=== PATIENT | female | born 1985 | race Caucasian/White ===

== ENCOUNTER 2020-09-24 15:38 | Observation (INO) | payer MEDICAID ==
[~2020-09-24] VITALS: Ht 162.6 cm; Wt 104.3 kg
[2020-09-24] MEDS ORDERED: PREN1TAB78 MT (16:36)
[2020-09-24] MEDS ORDERED: LEVO150T8 MT (16:36)
[2020-09-24] MEDS ORDERED: LACTATED RINGERS 1,000 ML IV SCH (17:00)
== END 2020-09-24 19:50 | disposition home or self-care (01) ==
LOC: 8 EST LDRP 15:38
PROVIDERS: ADMIT Specialist; ATTEND Specialist
DX: O42.92 Full-term premature rupture of membranes, unspecified as to length of time between rupture and onset of labor (principal); Z3A.38 38 weeks gestation of pregnancy
CPT/HCPCS: 76815; 76818; 96360; 96361; G0378; 99281; J7120

== ENCOUNTER → 2020-09-30 | Outpatient (CLI) | payer MEDICAID ==
[~2020-09-30] MED LIST: LEVO150T8 MT; PREN1TAB78 MT
== END | disposition home or self-care (01) ==
LOC: LAB 09:41
PROVIDERS: ATTEND Specialist
DX: Z20.828 Contact with and (suspected) exposure to other viral communicable diseases (principal)
CPT/HCPCS: C9803; U0003

== ENCOUNTER 2020-10-01 14:26 | Observation (INO) | payer MEDICAID ==
[~2020-10-01] VITALS: Ht 162.6 cm; Wt 105.7 kg
[2020-10-01 15:21] LABS: CLARITY URINE CLEAR (CLEAR); COLOR URINE YELLOW (YELLOW); KETONES URINE NEGATIVE (NEGATIVE); LEUKOCYTE ESTERASE URINE TRACE (NEGATIVE); NITRITE URINE NEGATIVE (NEGATIVE); OCCULT BLOOD URINE NEGATIVE (NEGATIVE); PROTEIN URINE NEGATIVE (NEGATIVE); SPECIFIC GRAVITY URINE 1.005 (1.005-1.030); UROBILINOGEN URINE 0.2 E.U./dL (0.2-1.0)
== END 2020-10-01 17:10 | disposition home or self-care (01) ==
LOC: 8 EST LDRP 14:26
PROVIDERS: ADMIT Specialist; ATTEND Specialist
DX: O36.8130 Decreased fetal movements, third trimester, not applicable or unspecified (principal); Z3A.39 39 weeks gestation of pregnancy
CPT/HCPCS: 59025; 76805; 76818; 81003; G0378; 99281

== ENCOUNTER 2020-10-03 11:24 | Inpatient (IN) | payer MEDICAID ==
[~2020-10-03] VITALS: Ht 160 cm; Wt 105.7 kg
[2020-10-03] MEDS ORDERED: MISOPROSTOL 100MCG TABLET VG SCH (12:15)
[2020-10-03] MEDS ORDERED: METHYLERGONOVINE MALEATE 0.2 MG/ML IM PRN (12:15)
[2020-10-03] MEDS ORDERED: CARBOPROST TROMETHAMINE 250 MCG/ML AMPUL IM PRN (12:15)
[2020-10-03 12:44] LABS: BASOPHILS % 0.3 % (0.0-2.0); CLARITY URINE CLEAR (CLEAR); COLOR URINE YELLOW (YELLOW); EOSINOPHILS % 1.3 % (0.0-5.0); HEMATOCRIT. 33.6 % (36.0-48.0); KETONES URINE 1+ (NEGATIVE); LEUKOCYTE ESTERASE URINE 2+ (NEGATIVE); MEAN CORPUSCULAR HEMOGLOBIN 26.4 pg (28.0-32.0); MEAN CORPUSCULAR VOLUME 81.2 fL (81.0-99.0); MONOCYTES % 9.2 % (2.0-8.0); NEUTROPHILS % 58.2 % (40.0-76.0); NITRITE URINE NEGATIVE (NEGATIVE); OCCULT BLOOD URINE NEGATIVE (NEGATIVE); PH URINE 7.5 (4.5-8.0); PLATELET 236 x1000/uL (130-400); PROTEIN URINE NEGATIVE (NEGATIVE); RED BLOOD CELL COUNT 4.14 mill/uL (4.2-5.4); RED CELL DISTRIBUTION WIDTH 15.4 % (11.6-14.6); SPECIFIC GRAVITY URINE 1.008 (1.005-1.030); UROBILINOGEN URINE 0.2 E.U./dL (0.2-1.0)
[2020-10-03 12:52] LABS: INR 0.9; PARTIAL THROMBOPLASTIN TIME 29.3 sec (23.4-31.0); PROTHROMBIN TIME 9.8 sec (9.6-11.0)
[2020-10-03] MEDS: LACTATED RINGERS 1,000 ML IV SCH ×2 (13:04→14:18)
[2020-10-03 13:18] LABS: METHADONE URINE SCREEN NEGATIVE (NEGATIVE); OPIATES URINE SCREEN NEGATIVE (NEGATIVE)
[2020-10-03 13:19] LABS: *AMPHETAMINES SCREEN URINE NEGATIVE (NEGATIVE); *BARBITURATES SCREEN URINE NEGATIVE (NEGATIVE); *BENZODIAZEPINES SCREEN URINE NEGATIVE (NEGATIVE); *COCAINE SCREEN URINE NEGATIVE (NEGATIVE); PHENCYCLIDINE URINE SCREEN NEGATIVE (NEGATIVE)
[2020-10-03 13:21] LABS: CANNABINOID URINE SCREEN NEGATIVE (NEGATIVE)
[2020-10-03] MEDS ORDERED: BUTORPHANOL TARTRATE 2 MG/ML VIAL IV PRN (15:00)
[2020-10-03] MEDS ORDERED: CITRIC ACID/SODIUM CITRATE SOLN 30ML UDC PO NR (15:00)
[2020-10-03] MEDS ORDERED: DIPHENHYDRAMINE 50MG/ML VIAL IM PRN (15:00)
[2020-10-03] MEDS ORDERED: FENTANYL CITRATE/PF 50MCG/ML 2ML VIAL ONE (15:06)
[2020-10-03] MEDS ORDERED: MORPHINE SULFATE/PF 1MG/ML 10ML AMP ONE (15:12)
[2020-10-03] MEDS ORDERED: SODIUM CHLORIDE 0.9% 10ML VIAL ONE (15:26)
[2020-10-03] MEDS ORDERED: CEFAZOLIN SODIUM 1000MG/VIAL ONE (15:26)
[2020-10-03] MEDS ORDERED: DEXT 5%/LR + PITOCIN 20UNITS/L 1,000 ML IV SCH (16:15)
[2020-10-03] MEDS ORDERED: ONDANSETRON HCL 4MG/2ML INJ IV PRN (16:15)
[2020-10-03] MEDS ORDERED: HYDROCODONE/ACETAMINOPHEN 5/325MG TABLET PO PRN (16:15)
[2020-10-03] MEDS ORDERED: LANOLIN OINT 7GM TUBE TOP PRN (16:15)
[2020-10-03] MEDS ORDERED: IBUPROFEN 400MG TABLET PO PRN (16:15)
[2020-10-03] MEDS ORDERED: KETOROLAC 30MG/ML VIAL IV PRN (16:15)
[2020-10-03] MEDS ORDERED: BISACODYL 10MG SUPP PR PRN (16:15)
[2020-10-03] MEDS ORDERED: OXYTOCIN 10 UNITS/ML 1ML ONE (16:22)
[2020-10-03] MEDS ORDERED: SIMETHICONE 80MG TABLET CHEW PO SCH (17:00)
[2020-10-03 18:39] LABS: HEPATITIS B SURFACE ANTIGEN NEGATIVE
[2020-10-03] MEDS: DEXT 5%/LR + PITOCIN 20UNITS/L 1,000 ML IV SCH (19:06)
[2020-10-03 20:20] VITALS: BP 119/73
[2020-10-03 20:50] VITALS: BP 127/70
[2020-10-03] MEDS ORDERED: DIPHENHYDRAMINE 25MG CAPSULE PO PRN (21:00)
[2020-10-03] MEDS ORDERED: DOCUSATE SODIUM 100MG CAPSULE PO SCH (21:00)
[2020-10-04 00:30] VITALS: BP 129/73
[2020-10-04] MEDS: DEXT 5%/LR + PITOCIN 20UNITS/L 1,000 ML IV SCH (04:12)
[2020-10-04 04:30] VITALS: BP 102/66
[2020-10-04 06:43] LABS: BASOPHILS % 0.2 % (0.0-2.0); EOSINOPHILS % 0.4 % (0.0-5.0); HEMATOCRIT. 28.6 % (36.0-48.0); HEMOGLOBIN. 9.3 g/dL (12.0-16.0); LYMPHOCYTES % 16.7 % (20.0-50.0); MEAN CORPUSCULAR HEMOGLOBIN 26.5 pg (28.0-32.0); MEAN CORPUSCULAR VOLUME 81.2 fL (81.0-99.0); MEAN PLATELET VOLUME 9.3 fl (7.4-10.4); MONOCYTES % 9.8 % (2.0-8.0); NEUTROPHILS % 72.9 % (40.0-76.0); PLATELET 195 x1000/uL (130-400); RED BLOOD CELL COUNT 3.52 mill/uL (4.2-5.4); RED CELL DISTRIBUTION WIDTH 15.2 % (11.6-14.6)
[2020-10-04] MEDS: LEVOTHYROXINE SODIUM 150MCG TABLET PO SCH (08:26)
[2020-10-04] MEDS: PRENATAL VIT/FE FUMARATE/FA TABLET PO SCH (09:00)
[2020-10-04] MEDS: IBUPROFEN 800MG TABLET PO PRN ×2 (10:08→18:49)
[2020-10-04] MEDS: FERROUS SULFATE 325MG TABLET PO SCH (10:08)
[2020-10-04 11:03] VITALS: BP 124/70
[2020-10-04 20:00] VITALS: BP 122/70
[2020-10-05] VITALS: BP 120/70
[2020-10-05 04:16] VITALS: BP 129/89
[2020-10-05] MEDS: IBUPROFEN 800MG TABLET PO PRN ×2 (04:18→11:55)
[2020-10-05] MEDS ORDERED: IBUP-2030 PO (04:42)
[2020-10-05] MEDS ORDERED: FERR325T23 PO (04:42)
[2020-10-05 08:30] VITALS: BP 104/69
[2020-10-05] MEDS: LEVOTHYROXINE SODIUM 150MCG TABLET PO SCH (08:34)
[2020-10-05] MEDS: FERROUS SULFATE 325MG TABLET PO SCH (08:34)
[2020-10-05] MEDS: PRENATAL VIT/FE FUMARATE/FA TABLET PO SCH (08:34)
== END 2020-10-05 15:30 | disposition home or self-care (01) | DRG 540 ==
LOC: 8 EST LDRP 11:24 → 8 EST A/PP 20:00
PROVIDERS: ADMIT Specialist; ATTEND Specialist
PROC: 10D00Z1 Extraction of Products of Conception, Low, Open Approach (ICD-10-PCS; principal; 2020-10-03)
PROC: 0UB70ZZ Excision of Bilateral Fallopian Tubes, Open Approach (ICD-10-PCS; 2020-10-03)
DX: O34.211 Maternal care for low transverse scar from previous cesarean delivery (principal); O99.284 Endocrine, nutritional and metabolic diseases complicating childbirth; O99.824 Streptococcus B carrier state complicating childbirth; O99.02 Anemia complicating childbirth; E03.9 Hypothyroidism, unspecified; D64.9 Anemia, unspecified; Z79.890 Hormone replacement therapy; Z79.899 Other long term (current) drug therapy; Z30.2 Encounter for sterilization; Z3A.39 39 weeks gestation of pregnancy; Z37.0 Single live birth
CPT/HCPCS: 36415; 80305; 81003; 85025; 86592; 86703; 86762; 86850; 86900; 87340; 88302; 88307; G0378; J0690; J2274; J2590; J3010; J7120